=== PATIENT | male | born 1940 | race Caucasian/White ===

== ENCOUNTER → 2016-09-12 | Day surgery (SDC) | payer MEDICARE, OTHER ==
[2016-09-04 08:43] VITALS: BMI 32.0
[~2016-09-12] VITALS: Ht 180.3 cm; Wt 106.4 kg
[~2016-09-12] MED LIST: AMLO-114 PO; ASPI325T39 PO; ATROPINE SULFATE 0.1 MG/ML 5ML SYR IV PRN; CALC500C70 PO; CHOL20007 PO; CIPROFLOXACIN 400MG / 200ML D5W ONE; COEN100C7 PO; COLON HEALTH PO; CYCL10TA6 PO; DEXAMETHASONE SOD INJ 4 MG/ML VIAL ONE; EpHEDrine SULFATE 50MG/5ML SYR ONE; EpHEDrine SULFATE INJ 50 MG/ML AMP IV PRN; FENTANYL CITRATE INJ 50 MCG/1 ML 2 ML VIAL IV PRN; FENTANYL CITRATE INJ 50 MCG/1 ML 2 ML VIAL ONE; FLUMAZENIL 0.1 MG/1 ML 10 ML VIAL IV PRN; HYDR-4079 PO; HYDROmorphone INJ 2 MG/ML SYR/VIAL IV PRN; HYG25 PO; IRBE-39 PO; LABETALOL HCL IV 5 MG/ML 20ML IV PRN; LACTATED RINGER'S 1000ML 1,000 ML IV SCH; LARYING-O-JET KIT (LTA) EXT ONE; LIDOCAINE HCL 2% 2 ML VIAL (20MG/ML) ONE; MAGN400T6 PO; MEPERIDINE HCL 25 MG/ML CARP IV PRN; NALOXONE HCL 0.4 MG/1 ML VIAL/CARP IV PRN; ONDANSETRON INJ 2 MG/ML 2 ML VIAL IV PRN; ONDANSETRON INJ 2 MG/ML 2 ML VIAL ONE; PHENYLEPHRINE 100MCG/ML 5ML SYR IV PRN; POTA20TA16 PO; PRAV10TA39 PO; PRLSR20 PO; PROPOFOL IV EMULSION 10 MG/ML 20 ML VIAL IV ONE; SUCCINYLCHOLINE CHLORIDE 20 MG/ML 10 ML VIAL IV ONE; SYMIN160 INH
[2016-09-12 07:54] VITALS: BP 142/94; PULSE 76; TEMP 36.7; O2SAT 95; Ht 180.3 cm; Wt 106.4 kg
--- NOTE | 2016-09-12 07:59 | Endo History and Physical ---
History & Physical Date of Service: Sep 11, 2016. Chief Complaint: Referring Physician: History of Present Illness this is a 75-year-old gentleman referred for an incidental finding of a 2 cm pancreatic uncinate cystic lesion found on CT scan scan was performed in June 2016 with IV contrast for constipation as well as recent back surgery. Past Medical History Angioplasty/Stent, Arthritis, Reflux, Hypertension, COPD Past Surgical History Hx Cardiac Surgery: Yes (CARDIAC CATH WITH STENTS 2000) Hx Abdominal Surgery: Yes (GALLBLADDER REMOVAL, BILATERAL INGUINAL HERNIA) Hx Post-Op Nausea and Vomiting: No Hx Cancer Surgery: No Hx Thoracic Surgery: No Hx Orthopedic: Yes (LOWER BACK) Hx Urinary Tract Surgery: No Social History Smoking Status: Former Smoker Hx Substance Use: No Hx Alcohol Use: No Allergies Coded Allergies: No Known Allergies (Unverified , 09/12/16) Current Medications Reported Home Medications Medications Dose Route/Sig Max Daily Dose Days Date Category Dose Instructions Flexeril (Cyclobenzaprine Hcl) 10 Mg Tab 10 Mg PO QAM 09/04/16 Reported Norvasc (Amlodipine Besylate) 10 Mg Tab 10 Mg PO HS 09/04/16 Reported Symbicort 160/4.5 Inhaler (Budesonide/Formoterol Fumarate) Aero 2 Puffs INH BID 09/04/16 Reported [place] 10MG/325MG (Acetaminophen/Hydrocodone Bitart) Tab 1 Tab PO QID PRN 09/04/16 Reported PRN PAIN Vitamin D3 (Cholecalciferol) 2,000 Unit Tab 1 Tab PO QPM 09/04/16 Reported Os-Maximilian 500 Plus D (Calcium/Vitamin D) Tab 1 Tab PO Q2D 09/04/16 Reported Aspirin Ec (Aspirin) 325 Mg Tab 325 Mg PO QAM 09/04/16 Reported TO STOP 5 DAYS BEFORE SURGERY Klor-Con (Potassium Chloride) 20 Meq Tabcr 2 Tab PO QPM 09/04/16 Reported Chlorthalidone 25 Mg Tab 25 Mg PO DAILY 08/18/15 Rx Coq10 (Coenzyme Q10 (Ubidecarenone)) 100 Mg Cap 100 Mg PO QAM 08/03/15 Reported [Colon Health] 1 Tab PO QPM 08/03/15 Reported Prilosec (Omeprazole) 20 Mg Capcr 20 Mg PO QAM 08/03/15 Reported Pravastatin Sodium 10 Mg Tab 1 Tab PO QPM 3/4/16 Reported Mag-Ox (Magnesium Oxide) 400 Mg Tab 400 Mg PO QAM 08/03/15 Reported Klor-Con (Potassium Chloride) 20 Meq Tabcr 3 Tab PO QAM 08/03/15 Reported Avapro (Irbesartan) 300 Mg Tab 1 Tab PO QAM 90 08/03/15 Reported Vital Signs Weight (Kilograms): 106.36 Height (Feet): 5 Height (Inches): 11 Physical Exam General Appearance: WD/WN, no apparent distress Respiratory/Chest: Respiratory effort: no dyspnea Auscultation: breath sounds normal, CTA except as noted, no rales/crackles, no rhonchi Cardiovascular: Apical Impulse: not displaced Heart Auscultation: RRR, normal S1, normal S2 Abdomen: Bowel Sounds: normal Inspection & Palpation: soft, non-distended Assessment and Plan 75-year-old gentleman presenting for endoscopic ultrasound for pancreatic cystic lesion of uncinate process without alarm signs
--- NOTE | 2016-09-12 08:00 | Progress Note ---
Progress Note Date of Service Sep 12, 2016. Progress Note Proceed with EUS as planned, risks, benefits, have all been identified and discussed with patient including bleeding, pancreatitis, perforation, and infection
--- NOTE | 2016-09-12 08:56 | Discharge Instructions ---
Endoscopy Patient Instructions Date / Procedure(s) Performed Sep 12, 2016. Other (Endoscopic Ultrasound) Allergy Information Coded Allergies: No Known Allergies (Unverified , 09/12/16) Discharge Date / Findings Sep 12, 2016. Provider Instructions Activity Restrictions - No exercising or heavy lifting for 24 hours. - Do not drink alcohol the day of the procedure. - Do not drive a car or operate machinery until the day after the procedure. - Do not make any important decisions or sign important papers in 24 hours after the procedure. Following Day: - Return to full activity which may include returning to work/school. Diet Start your diet with liquids and light foods (jello, soup, juice, toast). Then eat your usual diet if not nauseated. Treatment For Common After Affects For mild abdominal pain, bloating, or excessive gas: - Rest - Eat lightly - Lie on right side Follow-Up Information Follow-up with as scheduled Anesthesia Information What You Should Know You have had a procedure that required some medicine to reduce anxiety and discomfort. This treatment is called moderate sedation. After receiving the treatment, you may be sleepy, but you will be able to breathe on your own. The effects of the treatment may last for several hours. Follow these instructions along with Activity/Diet recommendations noted above: * Do NOT do anything where dizziness or clumsiness would be dangerous. * Rest quietly at home today, then you can be up and about tomorrow. * Have a responsible person stay with you the rest of today. * You may have had an I.V. today. If so, you may take the dressing off later today. Recommendations Call your doctor if: * Trouble breathing * Continuous vomiting for more than 24 hours * Temperature above 101 degrees * Severe abdominal pain or bloating * Pain not relieved by pain medicine ordered * There is increased drainage or redness from any incision * A large amount of rectal bleeding greater than 2-3 tablespoons. (If you had a polyp/s removed or have hemorrhoids, a small amount of blood - from the rectum is to be expected.) * You have any unanswered questions or concerns. IN THE EVENT OF A SERIOUS EMERGENCY, GO TO THE NEAREST EMERGENCY ROOM Your discharge instructions were prepared by provider Ramses Maier. Patient Instructions Signature Page Troy Lott Patient (or Guardian) Signature/Date: I have read and understand the instructions given to me by my caregivers. Caregiver/RN/Doctor Signature/Date: The above-named patient and/or guardian has received patient instructions on this date. + Original Patient Signature Page (only) stays with chart. Please make copy for patient.
--- NOTE | 2016-09-12 09:29 | Anesthesiology Progress Note ---
Anesthesia Post Op Note Date & Time Sep 12, 2016 at 09:28 Vital Signs Pain Intensity: 0 Vital Signs Past 12 Hours Date Time Temp Pulse Resp B/P Pulse Ox O2 Delivery O2 Flow Rate FiO2 09/12/16 09:21 85 18 95 09/12/16 09:21 85 18 09/12/16 09:20 116/81 09/12/16 09:16 85 25 93 09/12/16 09:16 86 25 09/12/16 09:15 119/72 09/12/16 09:11 81 17 98 09/12/16 09:11 81 17 09/12/16 09:10 110/68 09/12/16 09:06 82 16 98 09/12/16 09:06 81 16 09/12/16 09:05 121/69 09/12/16 09:01 84 15 09/12/16 09:01 83 15 98 09/12/16 09:00 117/73 09/12/16 08:56 87 14 09/12/16 08:56 87 14 126/69 97 09/12/16 08:56 36.0 87 18 126/69 97 Mask 10 09/12/16 07:54 36.7 76 18 142/94 95 Room Air Notes Mental Status: alert / awake / arousable, participated in evaluation Pt Amnestic to Procedure: Yes Nausea / Vomiting: adequately controlled Pain: adequately controlled Airway Patency, RR, SpO2: stable & adequate BP & HR: stable & adequate Hydration State: stable & adequate Anesthetic Complications: no major complications apparent
[2016-09-12 09:40] VITALS: BP 128/70; PULSE 86; TEMP 36.8; O2SAT 92
[2016-09-12 10:10] VITALS: BP 128/86; PULSE 86; TEMP 36.7; O2SAT 92
[2016-09-12 10:40] VITALS: BP 135/89; PULSE 80; TEMP 36.8; O2SAT 93
--- NOTE | 2016-09-12 10:52 | GI REPORT ---
Procedure Date: 09/12/2016 8:20 AM Procedure: Upper EUS Indications: Pancreatic cyst on CT scan Medicines: General Anesthesia Complications: No immediate complications. Estimated blood loss: None. Estimated Blood Loss: Estimated blood loss: none. Procedure: Pre-Anesthesia Assessment: - Pre-Anesthesia Assessment: - Prior to the procedure, a History and Physical was performed, and patient medications, allergies and sensitivities were reviewed. The patient's tolerance of previous anesthesia was reviewed. Please see [employer] for complete details. - The risks and benefits of the procedure and the sedation options and risks were discussed with the patient. All questions were answered and informed consent was obtained. - Patient identification and proposed procedure were verified prior to the procedure by the physician and the nurse. The procedure was verified in the pre-procedure area in the procedure room. After obtaining informed consent, the endoscope was passed carefully and meticuously under direct vision and only advanced when the lumen was clearly identified, C02 insuflation was utilized throughout the entirity of the procedure. Throughout the procedure, the patient's blood pressure, pulse, and oxygen saturations were monitored continuously. After obtaining informed consent, the endoscope was passed under direct vision. Throughout the procedure, the patient's blood pressure, pulse, and oxygen saturations were monitored continuously. The Endosonoscope was introduced through the mouth, and advanced to the second part of duodenum. The upper EUS was accomplished without difficulty. The patient tolerated the procedure well. Findings: Endosonographic Finding : An anechoic and calcified lesion suggestive of a cyst was identified in the uncinate process of the pancreas. It communicates with the pancreatic duct. The lesion measured 16 mm by 17 mm in maximal cross-sectional diameter. There was a single compartment without septae. The outer wall of the lesion was not seen. There was no associated mass. There was no internal debris within the fluid-filled cavity. Aspiration not able to be performed as it would have necessitated crossing at least 18mm of normal pancreas or the pancreatic duct. No high risk stigmata There was no sign of significant endosonographic abnormality in the main pancreatic duct. No masses, no calcifications, the pancreatic duct was well visualized from ampulla to tail, the pancreatic duct was thin in caliber. There was no sign of significant endosonographic abnormality in the common bile duct and in the common hepatic duct. No pathologic lymphadenopathy, no masses, no cysts, no calcifications and no stones were identified. There was no sign of significant endosonographic abnormality in the left lobe of the liver. There was no sign of significant endosonographic abnormality involving the celiac trunk. Comments: [facility] [place] [facility], unfortunately, technical difficulties did not allow for transition to provation. Impression: - A cystic lesion was seen in the uncinate process of the pancreas. - There was no sign of significant pathology in the main pancreatic duct. - There was no sign of significant pathology in the common bile duct and in the common hepatic duct. - There was no evidence of significant pathology in the left lobe of the liver. - The celiac trunk was endosonographically normal. - No specimens collected. Recommendation: - Discharge patient to home (with escort). - Return to my office after studies are complete. - Perform MRCP in 6 months. Ramses Maier MD 09/12/2016 10:51:30 AM This report has been signed electronically. Note Initiated On: 09/12/2016 8:20 AM I attest to the content of the Intraoperative Record and orders documented therein, exceptions below
== END | disposition home or self-care (01) ==
LOC: C.ACU 07:18
PROVIDERS: ATTEND Internal Medicine
DX: K86.2 Cyst of pancreas (principal); K21.9 Gastro-esophageal reflux disease without esophagitis; J44.9 Chronic obstructive pulmonary disease, unspecified; I10 Essential (primary) hypertension; Z95.5 Presence of coronary angioplasty implant and graft; Z98.890 Other specified postprocedural states

== ENCOUNTER → 2016-11-17 | Outpatient (CLI) | payer MEDICARE ==
[~2016-11-17] MED LIST changes: -ATROPINE SULFATE 0.1 MG/ML 5ML SYR IV PRN; -CIPROFLOXACIN 400MG / 200ML D5W ONE; -DEXAMETHASONE SOD INJ 4 MG/ML VIAL ONE; -EpHEDrine SULFATE 50MG/5ML SYR ONE; -EpHEDrine SULFATE INJ 50 MG/ML AMP IV PRN; -FENTANYL CITRATE INJ 50 MCG/1 ML 2 ML VIAL IV PRN; -FENTANYL CITRATE INJ 50 MCG/1 ML 2 ML VIAL ONE; -FLUMAZENIL 0.1 MG/1 ML 10 ML VIAL IV PRN; -HYDROmorphone INJ 2 MG/ML SYR/VIAL IV PRN; -LABETALOL HCL IV 5 MG/ML 20ML IV PRN; -LACTATED RINGER'S 1000ML 1,000 ML IV SCH; -LARYING-O-JET KIT (LTA) EXT ONE; -LIDOCAINE HCL 2% 2 ML VIAL (20MG/ML) ONE; -MEPERIDINE HCL 25 MG/ML CARP IV PRN; -NALOXONE HCL 0.4 MG/1 ML VIAL/CARP IV PRN; -ONDANSETRON INJ 2 MG/ML 2 ML VIAL IV PRN; -ONDANSETRON INJ 2 MG/ML 2 ML VIAL ONE; -PHENYLEPHRINE 100MCG/ML 5ML SYR IV PRN; -PROPOFOL IV EMULSION 10 MG/ML 20 ML VIAL IV ONE; -SUCCINYLCHOLINE CHLORIDE 20 MG/ML 10 ML VIAL IV ONE
--- NOTE | 2016-11-17 11:40 | DIAGNOSTIC IMAGING REPORT ---
LUMBAR SPINE MRI HISTORY: Back pain SPINAL STENOSIS-ORDER BEING FAX NOW PER DR TECHNIQUE: Multiplanar multisequence MRI of the lumbar spine was performed without the use of contrast. COMPARISON: 07/16/2015 FINDINGS: For the purpose of the report the L5-S1 disc space will be located on axial image 27 of 30. Moderate degenerative disc changes throughout. Vertebral body stature is unremarkable. L1-L2: Interval posterior laminectomy and fusion. Improved diameter of the spinal canal. Mild broad-based disc bulge. This is improved from the prior study. Neuroforamina are patent bilaterally. L2-L3: Broad-based disc bulge. Improved from the prior exam. Interval posterior laminectomy and fusion. Moderate osteophytic narrowing left neuroforamina. L3-L4: Moderate multifactorial narrowing of spinal canal. This is similar as compared to the prior study. Mild narrowing of the neuroforamina bilaterally. L4-L5: Moderate narrowing right neuroforamina increase in the prior study. Left neuroforamina is patent. Mild multifactorial narrowing of the spinal canal. L5-S1: No significant central canal or neural foraminal narrowing. IMPRESSION: 1. Interval revision of the patient's posterior laminectomy and fusion. 2. Interval laminectomy and fusion from L1 through L3. 3. Interval particular screw removal at L4 and L5. 4. Moderate narrowing right neuroforamina at L4-L5 slightly increased in the prior exam. 5. Moderate multifactorial narrowing of spinal canal L3-L4 similar compared to the prior study. 6. Mild disc bulges as well as mild narrowing of multiple neural foramina essentially unchanged from the prior study. Electronically signed by: Jose M Eagle M.D. 11/17/2016 11:38 AM Dictated Date/Time: 11/17/2016 11:28 AM
== END ==
LOC: C.OPENMRI 09:27
PROVIDERS: ATTEND Orthopaedic Surgery Orthopaedic Surgery of the Spine
DX: M48.00 Spinal stenosis, site unspecified (principal)